=== PATIENT | male | born 1995 | race Caucasian/White ===

== ENCOUNTER 2023-09-11 20:41 | Emergency (ER) | payer OTHER, SELFPAY ==
[2023-09-11 20:46] VITALS: BP 143/97; PULSE 89; RESP 18; TEMP 37.6; O2SAT 99; BMI 27.4
--- NOTE | 2023-09-11 21:39 | ED.GENADULT ---
HPI - General Adult General Chief complaint: Dizziness/Vertigo Stated complaint: Dizzy, chest pain Time Seen by Provider: 09/11/23 21:39 History of Present Illness HPI narrative: started around 1915, felt like he was going to pass out and dizzy. also felt a little SOB and pressure in chest. denies any hx of similar events, denies any significant cardiac or resp . hx. describes pain as pressure in center of chest . does not radiate. reports slight headache as well. has hx of migraines and says this feels similar to migraines without the severe headache . 27-year-old man presenting to the emergency department with concern of feeling like he might be about to pass out and feeling a pressure in his chest. Had been putting his daughter down to sleep and began to feel a sensation of a mid left, as gestured, chest pressure. Subsequently feeling maybe a little dizzy or more lightheaded actually. Was otherwise in usual state of health. Does exercise without difficulty. No cough cold symptoms recently. Does not smoke. There is a history of migrainous headaches with accompanied with tunnel vision. Not formally diagnosed but clearly describing migraines. Pending evaluation in about 3 weeks for this. Has developed migraines over the last couple of years. Is not describing waking with headaches. Currently has some discomfort or worsening headache in the left brow. Related Data Home Medications Medication Instructions Recorded Confirmed No Known Home Medications 09/11/23 09/11/23 Allergies Allergy/AdvReac Type Severity Reaction Status Date / Time No Known Drug Allergies Allergy Verified 09/11/23 20:52 Review of Systems Status of ROS: Reports: 6 or more systems reviewed and unremarkable except as noted in History and below [facility] Social History Smoking Status: Never smoker Do you use any of these nicotine containing products: None How often do you have a drink containing alcohol: never AUDIT-C Alcohol total score: 0 Non-prescribed substance use: denies use Exam Narrative: Exam Narrative: Pleasant. Breathing easily. Easily conversant. Cranial nerves 2-12 intact. Pupils are equal and briskly reactive to light and accommodation. Rotational movement of the head does not clearly elicit a sense of dizziness. Movement of the eyes seem to make him feel little more uncomfortable. Extraocular movements are full. Sclera subtly injected. Lungs are clear. Neck is supple without lymphadenopathy and there is no supraclavicular crepitus. Face seems a little bit flushed. Skin otherwise warm and dry. Well-perfused peripherally in no lower extremity edema. No tenderness to palpation. Heart is tachycardic and appears to be in a regular rhythm without murmur rub or gallop. Rate was observed to be 110 then abruptly increased to 120s. Abdomen is soft and nontender. Flat. Const: Vital Signs, click to edit/add: Vital Signs - 24 hr 09/11/23 20:46 09/11/23 21:42 09/11/23 23:15 Temperature 99.7 F H 99.1 F Pulse Rate [Pulse Oximeter] 89 87 Respiratory Rate 18 16 Blood Pressure [Ri ght Upper Arm] 143/97 H 137/86 Pulse Oximetry 99 98 Oxygen Delivery Me thod Room Air Room Air 09/11/23 23:15 Temperature Pulse Rate [Pulse Oximeter] 80 Respiratory Rate 16 Blood Pressure [Ri ght Upper Arm] 126/81 Pulse Oximetry 97 Oxygen Delivery Me thod Room Air Documenting provider has reviewed patient's vital signs: yes Course Vital Signs Vital signs: Initial Vital Signs Temperature 99.7 F H 09/11/23 20:46 Temperature Source Temporal Artery Scan 09/11/23 20:46 Pulse Rate 89 09/11/23 20:46 Respiratory Rate 18 09/11/23 20:46 Blood Pressure 143/97 H 09/11/23 20:46 Blood Pressure Mean 112 H 09/11/23 20:46 Blood Pressure Position Supine 09/11/23 20:46 Pulse Oximetry 99 09/11/23 20:46 Oxygen Delivery Method Room Air 09/11/23 20:46 Vital Signs Temperature 99.7 F H 09/11/23 20:46 Pulse Rate 89 09/11/23 20:46 Respiratory Rate 18 09/11/23 20:46 Blood Pressure 143/97 H 09/11/23 20:46 Pulse Oximetry 99 09/11/23 20:46 Oxygen Delivery Method Room Air 09/11/23 20:46 Temperature 99.1 F 09/11/23 23:15 Pulse Rate 80 09/11/23 23:15 Respiratory Rate 16 09/11/23 23:15 Blood Pressure 126/81 09/11/23 23:15 Pulse Oximetry 97 09/11/23 23:15 Oxygen Delivery Method Room Air 09/11/23 23:15 Medications Administered Medications: Discontinued Medications Generic Name Dose Route Start Last Admin Trade Name Juancho PRN Reason Stop Dose Admin Sodium Chloride 1,000 mls @ 1,000 mls/hr 09/11/23 22:02 09/12/23 00:08 0.9 % Sodium Chloride 1000 Ml IV 09/11/23 23:01 Infused .Q1H ONE Infusion Medical Decision Making MDM Narrative Medical decision making narrative: Breath sounds throughout I think less likely to have pneumothorax. Clearly with what appears to be a regular tachycardia so doubtful atrial fibrillation. I do not think fast enough for SVT nor likely to be aflutter. Has mildly elevated temperature. I suppose there could be pneumonia but no prodrome to suggest evolve infectious process. Doubtful ischemic cardiovascular event unless possibly rate related. Pulmonary embolus? Checking labs for ischemia and coagulation. I have reviewed the EKG which does not show ischemic changes and in a regular rhythm. See below. Ravin and significant other suggest that anxiety might be playing a role; certainly is possible. Furthermore has headache; other than duration without evaluation, no red flags for headache. Anemia could contribute to much of the above but related abrupt onset would be unusual. Did discuss treatment for headache. For both this tachycardia and apparently evolving headache though will treat with L of normal saline. On reassessment is a couple of times was less tachycardic eventually no longer tachycardic. Headache did not appear to be fully resolved but had not escalated. Blood pressure came down as well. Remained a little elevated but afebrile. We did discuss screening for COVID, other. This was declined/deferred. Labs overall reassuring. Overall symptoms improved. See patient discharge plan Lab Data Lab results reviewed: Yes I reviewed the patient's lab results Labs: Lab Results 09/11/23 Range/Units 22:10 WBC 10.75 (4.50-11.00) K/uL RBC 5.27 (4.30-5.90) m/uL Hgb 15.7 (13.5-17.5) gm/dL Hct 45.3 (37.0-53.0) % MCV 86 (80-100) fL MCH 30 (26-34) pg MCHC 35 (32-36) gm/dL RDW Coeff of Camacho 11.9 (11.5-15.5) % Plt Count 215 (140-440) K/uL Neut % (Auto) 81.0 H (42.0-72.0) % Lymph % (Auto) 12.5 L (20-44) % Imperial % (Auto) 5.3 (0.0-11.0) % Eos % (Auto) 0.2 (0.0-7.0) % Baso % (Auto) 0.2 (0.0-3.0) % Neut # (Auto) 8.70 H (1.7-7.0) K/uL Lymph # (Auto) 1.30 (0.90-2.90) K/uL Imperial # (Auto) 0.60 (0.00-0.90) K/UL Eos # (Auto) 0.02 (0.00-0.50) K/uL Baso # (Auto) 0.02 (0.00-0.30) K/uL Abs Immat Gran (auto) 0.09 (0.00-0.30) K/uL Imm/Tot Granulo (auto) 0.8 % D-Dimer Quant (PE/DVT) < 0.27 (0.00-0.50) ug/ml Sodium 142 (135-149) mmol/L Potassium 3.8 (3.6-5.1) mmol/L Chloride 105 (96-114) mmol/L Carbon Dioxide 26 (20-32) mmol/L Anion Gap 11 (7-15) mEq/L BUN 15 (5-24) mg/dL Creatinine 1.0 (0.5-1.5) mg/dL Estimated Creat Clear 100.13 Estimated GFR 106 ml/min Glucose 114 (60-115) mg/dL Calcium 9.8 (8.4-10.6) mg/dL Troponin I < 0.01 L (0.01-0.04) ng/mL NT-Pro-B Natriuret Pep < 20 pg/mL ECG Data Attestation: I personally reviewed and interpreted this ECG as follows: (Normal sinus rhythm rate of 87 without ischemic changes. No delta wave.) Discharge Plan Discharge Clinical Impression: Headache, Tachycardia Patient Disposition: Home w/ Parent or Adult Condition: Improved Additional Instructions: It is certainly is possible that this was a form of a panic attack. That however tends to be a diagnosis of exclusion. Whether the stressor was a sensation that might be evolving a migraine or there was some other stressor, sometimes that becomes more clear in a few days with some distance to consider. Hopefully can get a good night's rest tonight. Hydration and exercise can keep headaches at bay. Please follow-up as planned for further evaluation for these migraines. Return otherwise for significant headache that is unresolving, repeated vomiting, increasing and persistent chest pain or shortness of breath or persistently tachycardic heart rate. Prescriptions: No Action No Known Home Medications Follow Up/Referrals: Preston Ernst MD [Primary Care Provider] - Stand Alone Forms: [employer] Info Instructions
[2023-09-11 21:42] VITALS: BP 137/86; PULSE 87; RESP 16; O2SAT 98
[2023-09-11] MEDS: 0.9 % SODIUM CHLORIDE 1000 ml 1,000 ML IV (22:17)
[2023-09-11 22:34] LABS: Chloride* 105 mmol/L (96-114); Potassium* 3.8 mmol/L (3.6-5.1); Sodium* 142 mmol/L (135-149)
[2023-09-11 22:37] LABS: Anion Gap 11 mEq/L (7-15); Blood Urea Nitrogen* 15 mg/dL (5-24); Carbon Dioxide* 26 mmol/L (20-32); Est. Creatinine Clearance* 100.13; Estimated Glomerular Filt Rate 106 ml/min; Glucose* 114 mg/dL (60-115)
[2023-09-11 22:38] LABS: Calcium* 9.8 mg/dL (8.4-10.6)
[2023-09-11 22:39] LABS: Basophils Absolute Auto 0.02 K/uL (0.00-0.30); Basophils Percent Auto 0.2 % (0.0-3.0); Eosinophils Absolute Auto 0.02 K/uL (0.00-0.50); Eosinophils Percent Auto 0.2 % (0.0-7.0); Hematocrit 45.3 % (37.0-53.0); Hemoglobin* 15.7 gm/dL (13.5-17.5); Immature Granulocytes Abs Auto 0.09 K/uL (0.00-0.30); Immature Granulocytes Pct Auto 0.8 %; Lymphocytes Percent Auto 12.5 % (20-44); Mean Corpuscular HGB Conc 35 gm/dL (32-36); Mean Corpuscular Hemoglobin 30 pg (26-34); Mean Corpuscular Volume 86 fL (80-100); Monocytes Percent Auto 5.3 % (0.0-11.0); Platelet Count* 215 K/uL (140-440); RDW Coefficient of Variation % 11.9 % (11.5-15.5); Red Blood Count 5.27 m/uL (4.30-5.90); White Blood Count* 10.75 K/uL (4.50-11.00)
[2023-09-11 22:53] LABS: NT Pro B Type NatriureticPept* < 20 pg/mL; Troponin I* < 0.01 ng/mL (0.01-0.04)
[2023-09-11 22:56] LABS: D Dimer Quantitative* < 0.27 ug/ml (0.00-0.50)
[2023-09-11 23:10] LABS: Slide Review Reflex No
[2023-09-11 23:15] VITALS: BP 126/81; PULSE 80; RESP 16; TEMP 37.3; O2SAT 97
== END 2023-09-12 00:11 | disposition home or self-care (01) ==
PROVIDERS: Emergency Provider Family Medicine; PCP Family Medicine
DX: R51.9 Headache, unspecified (principal); R00.0 Tachycardia, unspecified
CPT/HCPCS: 36415; 80048; 83880; 84484; 85025; 85379; 99284; J7030